=== PATIENT | male | born 1940 | race Caucasian/White ===

== ENCOUNTER 2019-02-03 19:18 | Emergency (ER) | payer MEDICARE, BC ==
[~2019-02-03] VITALS: Ht 167.6 cm; Wt 63.5 kg
[~2019-02-03 19:18] MED LIST: ALPR.5 PO; CENTRUM SILVER1 EAC1; FAMO20 PO; HYDACE5 PO; HYDACE5325 PO; LORA.5 PO; MECL25 PO; OMEP20ER PO; SUCR1 PO
[2019-02-03] MEDS ORDERED: ALPR.5 (19:30)
[2019-02-03] MEDS ORDERED: AMLO5 PO (19:31)
[2019-02-03 19:49] LABS: BASOPHILS ABSOLUTE AUTO 0.03 K/mm3 (0.00-0.23); BASOPHILS PERCENT AUTO 1 % (0-2); EOSINOPHILS ABSOLUTE AUTO 0.24 K/mm3 (0.00-0.68); EOSINOPHILS PERCENT AUTO 4 % (0-6); Hemoglobin 13.5 g/dL (13.5-17.5); IMMATURE GRAN ABSOLUTE AUTO 0.01 K/mm3 (0.00-0.10); IMMATURE GRAN PERCENT AUTO 0 % (0-1); LYMPHOCYTES ABSOLUTE AUTO 1.77 K/mm3 (0.84-5.20); LYMPHOCYTES PERCENT AUTO 28 % (21-46); MONOCYTES ABSOLUTE AUTO 0.89 K/mm3 (0.16-1.47); MONOCYTES PERCENT AUTO 14 % (4-13); Mean Corpuscular HGB 28.5 pg (26.0-34.0); Mean Corpuscular HGB Conc 32.1 g/dL (31.5-36.5); Mean Corpuscular Volume 89 fL (80-100); Mean Platelet Volume 10.1 fL (9.1-12.4); NEUTROPHILS PERCENT AUTO 54 % (41-73); Platelet Count 214 K/mm3 (150-400); RDW Coefficient Variation 13.3 % (11.7-14.2); RDW Standard Deviation 43.7 fL (35.1-46.3); Red Blood Cell Count 4.73 M/mm3 (4.30-5.90); White Blood Cell Count 6.44 K/mm3 (4.00-11.30)
[2019-02-03 20:19] LABS: Alanine Aminotransfer (ALT/SGP 24 U/L (12-78); Albumin, Blood 3.6 g/dL (3.4-5.0); Albumin/Globulin Ratio 1.1 (0.8-1.8); Alk Phos 80 U/L (50-136); Anion Gap 5 mmol/L (6-16); Aspartate Aminotrans (AST/SGOT 20 U/L (12-37); Bilirubin, Total 0.6 mg/dL (0.1-1.0); Blood Urea Nitrogen 25 mg/dL (8-24); CO2, Blood 29 mmol/L (21-32); Chloride, Blood 107 mmol/L (98-108); Creatinine, Blood 1.25 mg/dL (0.60-1.20); Globulin, Blood 3.2 g/dL (2.2-4.0); Glomerular Filtration Rate 59 (60-); Glucose, Blood 87 mg/dL (70-99); Potassium, Blood 4.4 mmol/L (3.5-5.5); Sodium, Blood 141 mmol/L (136-145); Total Protein, Blood 6.8 g/dL (6.4-8.2); Troponin I <0.015 ng/mL (0.000-0.040)
== END 2019-02-03 21:29 | disposition home or self-care (01) ==
LOC: ER 19:18
PROVIDERS: Emergency Medicine
DX: I10 Essential (primary) hypertension (principal); Z88.5 Allergy status to narcotic agent; Z88.6 Allergy status to analgesic agent; Z79.899 Other long term (current) drug therapy; F41.9 Anxiety disorder, unspecified; K21.9 Gastro-esophageal reflux disease without esophagitis
CPT/HCPCS: 36415; 71045; 80053; 84484; 85025; 93005; 93010; 99285-25

== ENCOUNTER → 2020-08-21 | Outpatient (CLI) | payer MEDICARE, BC ==
[~2020-08-21] MED LIST changes: +ALPR.5; +AMLO5 PO
[2020-08-21 15:14] LABS: BASOPHILS ABSOLUTE AUTO 0.04 K/mm3 (0.00-0.23); BASOPHILS PERCENT AUTO 1 % (0-2); EOSINOPHILS ABSOLUTE AUTO 0.09 K/mm3 (0.00-0.68); EOSINOPHILS PERCENT AUTO 1 % (0-6); Hematocrit 42.9 % (37.0-53.0); Hemoglobin 14.1 g/dL (13.5-17.5); IMMATURE GRAN ABSOLUTE AUTO 0.01 K/mm3 (0.00-0.10); IMMATURE GRAN PERCENT AUTO 0 % (0-1); LYMPHOCYTES ABSOLUTE AUTO 1.95 K/mm3 (0.84-5.20); LYMPHOCYTES PERCENT AUTO 28 % (21-46); MONOCYTES ABSOLUTE AUTO 0.69 K/mm3 (0.16-1.47); MONOCYTES PERCENT AUTO 10 % (4-13); Mean Corpuscular HGB 28.7 pg (26.0-34.0); Mean Corpuscular HGB Conc 32.9 g/dL (31.5-36.5); Mean Corpuscular Volume 87 fL (80-100); Mean Platelet Volume 9.6 fL (9.1-12.4); NEUTROPHILS ABSOLUTE AUTO 4.31 K/mm3 (1.96-9.15); NEUTROPHILS PERCENT AUTO 61 % (41-73); Platelet Count 227 K/mm3 (150-400); RDW Coefficient Variation 13.5 % (11.7-14.2); RDW Standard Deviation 43.1 fL (35.1-46.3); Red Blood Cell Count 4.92 M/mm3 (4.30-5.90); White Blood Cell Count 7.09 K/mm3 (4.00-11.30)
[2020-08-21 15:33] LABS: Alanine Aminotransfer (ALT/SGP 25 U/L (12-78); Albumin/Globulin Ratio 1.1 (0.8-1.8); Alk Phos 79 U/L (40-126); Anion Gap 7 mmol/L (6-16); Aspartate Aminotrans (AST/SGOT 21 U/L (12-37); Bilirubin, Total 0.6 mg/dL (0.1-1.0); Blood Urea Nitrogen 29 mg/dL (8-24); CO2, Blood 29 mmol/L (21-32); Calcium, Blood 9.6 mg/dL (8.5-10.1); Chloride, Blood 103 mmol/L (98-108); Creatinine, Blood 1.38 mg/dL (0.60-1.20); Globulin, Blood 3.5 g/dL (2.2-4.0); Glomerular Filtration Rate 50 (60-); Glucose, Blood 88 mg/dL (70-99); Potassium, Blood 4.7 mmol/L (3.5-5.5); Sodium, Blood 139 mmol/L (136-145); Thyroid Stimulating Hormone 0.873 uIU/mL (0.360-4.800); Total Protein, Blood 7.5 g/dL (6.4-8.2); Troponin I <0.017 ng/mL (0.000-0.040)
== END | disposition home or self-care (01) ==
LOC: LAB EV 15:10 → LAB SHORT 15:10
PROVIDERS: Physician Assistant
DX: R55 Syncope and collapse (principal); R53.83 Other fatigue
CPT/HCPCS: 80053; 84443; 84484; 85025

== ENCOUNTER 2021-01-18 08:48 | Day surgery (SDC) | payer MEDICARE, BC ==
--- NOTE | 2021-01-18 09:58 | NUR ---
Ambulatory in Day Surgery History, Chart, Medications and Allergies reviewed before start of procedure. Lungs clear T/O to Auscultation. Pre-Op teaching done. Pt verbalizes understanding.
--- NOTE | 2021-01-18 10:46 | NUR ---
Patient up to Ambulate independently. Gait steady. Discharge instructions reviewed with patient. Patient verbalizes understanding. Copy given to patient to take home.
--- NOTE | 2021-01-18 10:50 | NUR ---
PT AMBULATED WITH RN ESCORT TO VEHICLE.
== END 2021-01-18 22:49 | disposition home or self-care (01) ==
LOC: MHTC 08:48 → ORSCMMR 08:48 → ORD 09:30 → ORSCMMR 09:30 → CT 10:00 → ORSCMMR 22:49
DX: I25.10 Atherosclerotic heart disease of native coronary artery without angina pectoris (principal); I49.3 Ventricular premature depolarization; E78.00 Pure hypercholesterolemia, unspecified; I12.9 Hypertensive chronic kidney disease with stage 1 through stage 4 chronic kidney disease, or unspecified chronic kidney disease; N18.9 Chronic kidney disease, unspecified; Z88.8 Allergy status to other drugs, medicaments and biological substances
CPT/HCPCS: 75574; Q9967

== ENCOUNTER 2022-12-20 12:28 | Day surgery (SDC) | payer MEDICARE ==
[~2022-12-20] VITALS: Ht 167.6 cm; Wt 60.2 kg
--- NOTE | 2022-12-20 15:18 | NUR ---
12/20/22 1518 Ana Rosa Tate PT STATED LOWER ABDOMEN WAS "HAVING A LITTLE PAIN" 11/01. RN ASSISTED PT TO REPOSITION AND PT STATED THAT THE "PAIN WAS FEELING MUCH BETTER." PT TOLERATE PO FLUIDS WELL AND DENIED NAUSEA. PT VOICED SATISFACTION WITH THE CARE TODAY AT [facility].
== END 2022-12-20 15:13 | disposition home or self-care (01) ==
LOC: ORSCSDS 12:28
PROVIDERS: Internal Medicine Gastroenterology
PROC: 0DBN8ZX Excision of Sigmoid Colon, Via Natural or Artificial Opening Endoscopic, Diagnostic (ICD-10-PCS; principal; 2022-12-20 14:00)
PROC: 0DBL8ZX Excision of Transverse Colon, Via Natural or Artificial Opening Endoscopic, Diagnostic (ICD-10-PCS; principal; 2022-12-20 14:00)
PROC: 0DBK8ZX Excision of Ascending Colon, Via Natural or Artificial Opening Endoscopic, Diagnostic (ICD-10-PCS; principal; 2022-12-20 14:00)
PROC: 0DB58ZX Excision of Esophagus, Via Natural or Artificial Opening Endoscopic, Diagnostic (ICD-10-PCS; principal; 2022-12-20 14:00)
PROC: 0D757ZZ Dilation of Esophagus, Via Natural or Artificial Opening (ICD-10-PCS; principal; 2022-12-20 14:00)
PROC: 0DB78ZX Excision of Stomach, Pylorus, Via Natural or Artificial Opening Endoscopic, Diagnostic (ICD-10-PCS; principal; 2022-12-20 14:00)
DX: Z12.11 Encounter for screening for malignant neoplasm of colon (principal); Z86.010 Personal history of colon polyps; K21.9 Gastro-esophageal reflux disease without esophagitis; R13.10 Dysphagia, unspecified; Z87.11 Personal history of peptic ulcer disease; D12.3 Benign neoplasm of transverse colon; D12.2 Benign neoplasm of ascending colon; D12.5 Benign neoplasm of sigmoid colon; Z80.0 Family history of malignant neoplasm of digestive organs; K57.30 Diverticulosis of large intestine without perforation or abscess without bleeding; K64.8 Other hemorrhoids; I10 Essential (primary) hypertension; I25.10 Atherosclerotic heart disease of native coronary artery without angina pectoris; G47.33 Obstructive sleep apnea (adult) (pediatric); E78.00 Pure hypercholesterolemia, unspecified; Z79.899 Other long term (current) drug therapy
CPT/HCPCS: 88305; 88342; J2704; J7120

== ENCOUNTER 2024-06-16 08:23 | Observation (INO) | payer MEDICARE ==
[~2024-06-16] VITALS: Ht 167.6 cm; Wt 59.7 kg
[~2024-06-16 08:23] MED LIST changes: +AMLODIPINE BESY10 MG PO; +ASPI81CH PO; +CYCL10 PO; +XANAX0.25 MG PO
[2024-06-16 09:23] LABS: BASOPHILS ABSOLUTE AUTO 0.03 K/mm3 (0.00-0.23); BASOPHILS PERCENT AUTO 1 % (0-2); EOSINOPHILS ABSOLUTE AUTO 0.13 K/mm3 (0.00-0.68); EOSINOPHILS PERCENT AUTO 2 % (0-6); Hematocrit 42.5 % (37.0-53.0); Hemoglobin 13.9 g/dL (13.5-17.5); IMMATURE GRAN PERCENT AUTO 0 % (0-1); LYMPHOCYTES PERCENT AUTO 31 % (21-46); MONOCYTES ABSOLUTE AUTO 0.66 K/mm3 (0.16-1.47); MONOCYTES PERCENT AUTO 12 % (4-13); Mean Corpuscular HGB 28.7 pg (26.0-34.0); Mean Corpuscular HGB Conc 32.7 g/dL (31.5-36.5); Mean Corpuscular Volume 88 fL (80-100); Mean Platelet Volume 10.1 fL (9.1-12.4); NEUTROPHILS ABSOLUTE AUTO 3.01 K/mm3 (1.96-9.15); NEUTROPHILS PERCENT AUTO 55 % (41-73); Platelet Count 296 K/mm3 (150-400); RDW Coefficient Variation 13.4 % (11.7-14.2); RDW Standard Deviation 43.2 fL (35.1-46.3); Red Blood Cell Count 4.85 M/mm3 (4.30-5.90); White Blood Cell Count 5.53 K/mm3 (4.00-11.30)
[2024-06-16 09:30] LABS: Albumin, Blood 3.7 g/dL (3.4-5.0); Albumin/Globulin Ratio 1.1 (0.8-1.8); Bilirubin, Total 0.6 mg/dL (0.1-1.0); Bun/Creatinine Ratio 17.9 (12.0-20.0); Calcium, Blood 9.6 mg/dL (8.5-10.1); Creatinine, Blood 1.4 mg/dL (0.60-1.20); Globulin, Blood 3.5 g/dL (2.2-4.0); Potassium, Blood 4.3 mmol/L (3.5-5.5); Total Protein, Blood 7.2 g/dL (6.4-8.2)
[2024-06-16] MEDS ORDERED: Metoclopramide HCl 5MG / ML 2ML Vial IV ONE (11:50)
[2024-06-16] MEDS ORDERED: DiphenhydrAMINE HCl 50 MG/ML 1ML Vial IV ONE (11:50)
[2024-06-16] MEDS ORDERED: NS 1,000 ML IV SCH (11:50)
[2024-06-16] MEDS ORDERED: Aspirin 325 MG Tab PO ONE (11:50)
[2024-06-16] MEDS ORDERED: Aspirin 81 MG Chew PO ONE (12:20)
[2024-06-16] MEDS ORDERED: FLU VACC TS2024-25(6MOS UP)/PF 45 MCG/0.5 ML SYRINGE IM ONE (13:05)
[2024-06-16 15:31] VITALS: BP 182/87
--- NOTE | 2024-06-16 16:58 | NUR ---
ADMIT NOTE- PT ADMITTED THROUGH THE ED, HE WAS ASSISTED 1PA TO THE BATHROOM, HE IS VERY MODEST, 2 RN SKIN CHECK WAS COMPLETED WITH JEANMARIE MEDEIROS WHO IS NOW ASSUMING CARE OF THE PT. PT STATES HE HAS HAD THREE EPISODES OF CHEST PIAN TODAY, IT GETS WORSE WITH ACTIVITY, PER PT STATEMENT. PT PLACED ON TELE, NO CURRENT S&S OF DISTRESS NOTED.
--- NOTE | 2024-06-16 17:20 | NUR ---
ASSUMED CARE OF PT. PT CURRENTLY IN MRI. PT NOTED TO BECOME UNBALANCED AND REPORTS DIZZINESS WITH MOVEMENT. STATES IT NORMALIZES WHEN STILL. 1 PERSON ASSIST FROM BED TO GURNEY, DENIES CHESTPAIN, DENIES ABD PAIN. ABLE TO MAKE NEEDS KNOWN
[2024-06-16] MEDS ORDERED: D5W-1/2NS 1,000 ML IV SCH (18:15)
[2024-06-16 19:25] VITALS: BP 153/86
--- NOTE | 2024-06-16 20:56 | NUR ---
HOSPITALIST CONTACTED. PATIENT REPORTS TAKING ZANAX AT HOME Q12H FOR ANXIETY/SLEEP. PATIENT IS HAVING ANXIETY AND A BOUT OF INSOMNIA. DOCTOR ORDERED A ONE TIME DOSE OF ATIVAN IV-SEE ORDERS.
[2024-06-16] MEDS ORDERED: LORazepam 2 MG/ML 1ML Injection IV ONE (21:10)
[2024-06-17 04:29] VITALS: BP 149/83
[2024-06-17 05:57] LABS: BASOPHILS ABSOLUTE AUTO 0.03 K/mm3 (0.00-0.23); BASOPHILS PERCENT AUTO 1 % (0-2); EOSINOPHILS ABSOLUTE AUTO 0.14 K/mm3 (0.00-0.68); EOSINOPHILS PERCENT AUTO 2 % (0-6); Hematocrit 43.9 % (37.0-53.0); Hemoglobin 14.5 g/dL (13.5-17.5); IMMATURE GRAN ABSOLUTE AUTO 0.02 K/mm3 (0.00-0.10); IMMATURE GRAN PERCENT AUTO 0 % (0-1); LYMPHOCYTES ABSOLUTE AUTO 1.96 K/mm3 (0.84-5.20); LYMPHOCYTES PERCENT AUTO 32 % (21-46); MONOCYTES ABSOLUTE AUTO 0.75 K/mm3 (0.16-1.47); MONOCYTES PERCENT AUTO 12 % (4-13); Mean Corpuscular HGB 28.7 pg (26.0-34.0); Mean Corpuscular Volume 87 fL (80-100); Mean Platelet Volume 9.9 fL (9.1-12.4); NEUTROPHILS ABSOLUTE AUTO 3.29 K/mm3 (1.96-9.15); NEUTROPHILS PERCENT AUTO 53 % (41-73); Platelet Count 292 K/mm3 (150-400); RDW Coefficient Variation 13.6 % (11.7-14.2); Red Blood Cell Count 5.05 M/mm3 (4.30-5.90); White Blood Cell Count 6.19 K/mm3 (4.00-11.30)
[2024-06-17] MEDS ORDERED: Pantoprazole Sodium 40 MG Tab PO SCH (06:00)
--- NOTE | 2024-06-17 06:32 | NUR ---
SHIFT SUMMARY. PATIENT IS A&OX4. PATIENT IS PLEASANT. PATIENT CALLS APPROPRIATELY AND IS ABLE TO MAKE HIS NEEDS KNOWN. PATIENT ASKED FOR HIS XANAX THAT HE TAKES AT HOME-SEE PREVIOUS NOTE. PATIENT IS ANXIOUS TO EAT, AND REPORTS HAVING DIFFICULTY WITH SWALLOWING AT HOME NEEDING TO TURN HEAD TO THE RIGHT SIDE WHEN HE EATS OR DRINKS. PATIENT IS A 1 PERSON ASSIST W/GB TO THE BATHROOM. PATIENT HAS TELE ON WITH LEADS IN PLACE. BED IS LOCKED IN THE LOWEST POSTITION WITH CALL LIGHT IN REACH CARE IS ONGOING.
[2024-06-17 06:35] LABS: Bun/Creatinine Ratio 14.2 (12.0-20.0); Calcium, Blood 9.6 mg/dL (8.5-10.1); Creatinine, Blood 1.41 mg/dL (0.60-1.20); Potassium, Blood 4.4 mmol/L (3.5-5.5)
[2024-06-17 07:22] VITALS: BP 140/82
[2024-06-17] MEDS ORDERED: Enoxaparin 40 MG/0.4 ML SYR SC SCH (09:00)
[2024-06-17] MEDS ORDERED: Clopidogrel Bisulfate 75 MG Tab PO SCH (09:00)
[2024-06-17] MEDS ORDERED: Pantoprazole Sodium 40 MG Injection IV SCH (09:00)
[2024-06-17] MEDS ORDERED: Aspirin 81 MG Chew PO SCH (09:00)
[2024-06-17] MEDS ORDERED: Meclizine HCl 25 MG Tab PO SCH (10:00)
--- NOTE | 2024-06-17 14:09 | NUR ---
DR. LEIVA NOTIFIED, PT HEADACHE INTENSIFIED THROUGHOUT DAY, OT CONCERN FOR BALANCE, PT STATED THAT WORDS IN INDONES[place] THAT HE WOULD NORMALLY BE ABLE TO SAY ARE DIFFICULT TO EXPRESS NOW. SBP 140S. AWAITING ORDERS
[2024-06-17 15:31] VITALS: BP 161/87
[2024-06-17] MEDS ORDERED: HydrALAZINE HCl 20 MG / ML 1ML Vial IV PRN (16:35)
[2024-06-17 17:30] VITALS: BP 147/81
--- NOTE | 2024-06-17 18:04 | NUR ---
PT IS ALERT AND ORIENTED X4, CALLS APPROPRIATELY. DIFFICULTY BALANCING WITH STANDING AND RETURNING TO SITTING POSITION, ST/OT/PT WITH PT TODAY. PLAN FOR SNF PENDING APPROVAL. SBA WITH FWW TO BATHROOM. CURRENTLY SITTING EATING DINNER.
[2024-06-17 19:52] VITALS: BP 163/89
[2024-06-17] MEDS ORDERED: ALPRAZolam 0.25 MG Tab PO PRN (20:45)
[2024-06-17] MEDS ORDERED: Losartan Potassium 25 MG Tab PO SCH (21:00)
[2024-06-18] MEDS ORDERED: Acetaminophen 325 MG TABLET PO PRN (01:45)
[2024-06-18 04:07] VITALS: BP 142/80
--- NOTE | 2024-06-18 05:20 | NUR ---
SHIFT SUMMARY. PATIENT IS A&OX4. PATIENT CALLS APPROPRIATELY AND IS ABLE TO MAKE HIS NEEDS KNOWN. PATIENT UP TO BATHROOM WITH SBA AND FWW. PATIENT C/O HEADACHE TONIGHT-HOSPITALIST CONTACTED-ORDERED FOR PRN TYLENOL; SEE ORDERS. PATIENT A LITTLE ANXIOUS TONIGHT-PRN XANAX GIVEN WITH IMPROVEMENT TO ANXIETY. PATIENT IS PLEASANT AND COOPERATIVE WITH CARE. BED IS LOCKED IN THE LOWEST POSITION WITH CALL LIGHT IN REACH. CARE IS ONGOING.
[2024-06-18 05:29] LABS: BASOPHILS ABSOLUTE AUTO 0.04 K/mm3 (0.00-0.23); BASOPHILS PERCENT AUTO 1 % (0-2); EOSINOPHILS ABSOLUTE AUTO 0.17 K/mm3 (0.00-0.68); EOSINOPHILS PERCENT AUTO 3 % (0-6); Hematocrit 39.4 % (37.0-53.0); Hemoglobin 13.1 g/dL (13.5-17.5); IMMATURE GRAN ABSOLUTE AUTO 0.01 K/mm3 (0.00-0.10); IMMATURE GRAN PERCENT AUTO 0 % (0-1); LYMPHOCYTES ABSOLUTE AUTO 1.33 K/mm3 (0.84-5.20); LYMPHOCYTES PERCENT AUTO 22 % (21-46); MONOCYTES ABSOLUTE AUTO 0.82 K/mm3 (0.16-1.47); MONOCYTES PERCENT AUTO 14 % (4-13); Mean Corpuscular HGB 28.5 pg (26.0-34.0); Mean Corpuscular HGB Conc 33.2 g/dL (31.5-36.5); Mean Corpuscular Volume 86 fL (80-100); Mean Platelet Volume 9.6 fL (9.1-12.4); NEUTROPHILS ABSOLUTE AUTO 3.57 K/mm3 (1.96-9.15); NEUTROPHILS PERCENT AUTO 60 % (41-73); Platelet Count 260 K/mm3 (150-400); RDW Coefficient Variation 13.2 % (11.7-14.2); RDW Standard Deviation 41.1 fL (35.1-46.3); White Blood Cell Count 5.94 K/mm3 (4.00-11.30)
[2024-06-18 06:04] LABS: Bun/Creatinine Ratio 14.1 (12.0-20.0); Calcium, Blood 9.1 mg/dL (8.5-10.1); Creatinine, Blood 1.42 mg/dL (0.60-1.20); Potassium, Blood 4.3 mmol/L (3.5-5.5)
[2024-06-18 07:25] VITALS: BP 169/96
[2024-06-18 08:12] VITALS: BP 145/73
--- NOTE | 2024-06-18 08:53 | NUR ---
PT REPORTS SEVERE HEADACHE, UNRELIEVED WITH TYLENOL, BP MED GIVEN TO SEE IF IT WOULD HELP. PT REPORTS HEADACHE THAT IS MAKING HIM SEE STARS. DR. LEIVA NOTIFIED. EMAR UPDATED
[2024-06-18] MEDS ORDERED: TraMADol HCl 50 MG Tab PO PRN (08:55)
[2024-06-18] MEDS ORDERED: Docusate Sodium/Senna 1 Tab PO PRN (09:50)
[2024-06-18 16:24] VITALS: BP 159/85
--- NOTE | 2024-06-18 16:51 | NUR ---
PT FAMILY AT BEDSIDE. APPRECIATES PT CARE TEAM. NO ACUTE CHANGES. OT RECOMMENDS PT TREAT FOR [facility]- PETE MANEUVER. DR. LEIVA OK WITH ORDER. PT STATES SOME INTERMITTENT DIZZINESS BUT BETTER TODAY THAN YESTERDAY. PT BALANCE IS OFF WITH SIT TO STAND AND BACK. TREATED HEADACHE PER EMAR. PT REPORTS ANXIETY WITH ENTIRE SITUATION. CALLS APPROPRIATELY, ORIENTED X4. ABLE MAKE NEEDS KNOWN.
[2024-06-18 19:14] VITALS: BP 134/72
[2024-06-19 03:07] VITALS: BP 127/83
--- NOTE | 2024-06-19 04:33 | NUR ---
SHIFT SUMMARY: PT IS A PLEASANT 83 YO FULL CODE MALE. PT HAS HAD SOME ANXIETY BUT HAS MANAGED VERY WELL WITH ANXIETY MEDICATION (SEE EMAR). PT IS A&OX4 AND IS A ONE ASSIST WITH A FWW TO THE [facility]. PT CAN BE HARD TO UNDERSTAND AT TIME BECAUSE HE HAS A THICK [place] ACCENT. HE TAKES MEDS ONE AT A TIME WHOLE WITH APPLE SAUCE. PT IS ON A SOFT BITE SIZED DIET. PT IS STILL DIZZY AT TIMES AND HAS HEADACHES BUT HAS GOTTEN SOME REST TONIGHT. PT CALLS APPROPRIATELY AND HAS CALL LIGHT IN REACH.
[2024-06-19 05:55] LABS: BASOPHILS ABSOLUTE AUTO 0.03 K/mm3 (0.00-0.23); BASOPHILS PERCENT AUTO 1 % (0-2); EOSINOPHILS PERCENT AUTO 4 % (0-6); Hematocrit 40.6 % (37.0-53.0); Hemoglobin 13.2 g/dL (13.5-17.5); IMMATURE GRAN ABSOLUTE AUTO 0.02 K/mm3 (0.00-0.10); IMMATURE GRAN PERCENT AUTO 0 % (0-1); LYMPHOCYTES ABSOLUTE AUTO 1.16 K/mm3 (0.84-5.20); LYMPHOCYTES PERCENT AUTO 20 % (21-46); MONOCYTES ABSOLUTE AUTO 0.96 K/mm3 (0.16-1.47); MONOCYTES PERCENT AUTO 17 % (4-13); Mean Corpuscular HGB Conc 32.5 g/dL (31.5-36.5); Mean Corpuscular Volume 86 fL (80-100); Mean Platelet Volume 9.4 fL (9.1-12.4); NEUTROPHILS ABSOLUTE AUTO 3.42 K/mm3 (1.96-9.15); NEUTROPHILS PERCENT AUTO 59 % (41-73); Platelet Count 264 K/mm3 (150-400); RDW Coefficient Variation 13.6 % (11.7-14.2); Red Blood Cell Count 4.72 M/mm3 (4.30-5.90); White Blood Cell Count 5.79 K/mm3 (4.00-11.30)
[2024-06-19 06:30] LABS: Bun/Creatinine Ratio 15.2 (12.0-20.0); Calcium, Blood 9.6 mg/dL (8.5-10.1); Creatinine, Blood 1.58 mg/dL (0.60-1.20); Potassium, Blood 4.6 mmol/L (3.5-5.5)
[2024-06-19 07:22] VITALS: BP 134/89
[2024-06-19] MEDS ORDERED: TraMADol HCl 50 MG Tab PO PRN (07:40)
[2024-06-19] MEDS ORDERED: Enoxaparin 30 MG/0.3 ML SYR SC SCH (09:00)
[2024-06-19 15:57] VITALS: BP 138/84
--- NOTE | 2024-06-19 18:36 | NUR ---
SHIFT SUMMARY PATIENT ABLE TO AMBULATE TO BATHROOM WITH SBA AND WALKER, A FEW EPISODES OF REPORTED VERTIGO. ANTIVERT TAKEN PER NOV. SON ATA ENCOURAGING PT FOR DISCHARGE TO [facility], PT APPREHENSIVE ABOUT POTENTIAL DISCHARGE. TELEMETRY SINUS RHYTHM, NO CONCERNS. ABLE TO MAKE NEEDS KNOWN. CALL LIGHT IN REACH, CARES ONGOING.
[2024-06-19 19:14] VITALS: BP 132/75
--- NOTE | 2024-06-20 02:29 | NUR ---
SHIFT SUMMARY PT IS A&O X4, ABLE TO MAKE HIS NEEDS KNOWN, PLEASANT. PT AMBULATES INDEPENDENTLY W/I THE HOSPITAL ROOM. PT TAKES PO MEDS ONE AT A TIME, WITH APPLE SAUCE. HS XANAX REQUESTED PER PT FOR ANXIETY. PT DENIES ANY PAIN DURING THIS SHIFT. TELE: SR@65. PT DENIES N/V, AND REPORTS OVERALL FEELING MUCH BETTER. NO ACUTE EVENTS DURING THIS SHIFT. BED AT THE LOWEST POSITION, CALL LIGHT WITHIN REACH.
[2024-06-20 04:43] VITALS: BP 123/81
[2024-06-20 06:08] LABS: BASOPHILS ABSOLUTE AUTO 0.03 K/mm3 (0.00-0.23); BASOPHILS PERCENT AUTO 1 % (0-2); EOSINOPHILS ABSOLUTE AUTO 0.23 K/mm3 (0.00-0.68); EOSINOPHILS PERCENT AUTO 4 % (0-6); Hemoglobin 13.3 g/dL (13.5-17.5); IMMATURE GRAN ABSOLUTE AUTO 0.03 K/mm3 (0.00-0.10); IMMATURE GRAN PERCENT AUTO 1 % (0-1); LYMPHOCYTES ABSOLUTE AUTO 1.32 K/mm3 (0.84-5.20); LYMPHOCYTES PERCENT AUTO 25 % (21-46); MONOCYTES ABSOLUTE AUTO 0.86 K/mm3 (0.16-1.47); MONOCYTES PERCENT AUTO 16 % (4-13); Mean Corpuscular HGB 28.5 pg (26.0-34.0); Mean Corpuscular HGB Conc 33.3 g/dL (31.5-36.5); Mean Corpuscular Volume 86 fL (80-100); Mean Platelet Volume 9.7 fL (9.1-12.4); NEUTROPHILS ABSOLUTE AUTO 2.89 K/mm3 (1.96-9.15); NEUTROPHILS PERCENT AUTO 54 % (41-73); Platelet Count 264 K/mm3 (150-400); RDW Coefficient Variation 13.6 % (11.7-14.2); RDW Standard Deviation 42.9 fL (35.1-46.3); Red Blood Cell Count 4.67 M/mm3 (4.30-5.90); White Blood Cell Count 5.36 K/mm3 (4.00-11.30)
[2024-06-20 06:38] LABS: Bun/Creatinine Ratio 18.2 (12.0-20.0); Calcium, Blood 9.4 mg/dL (8.5-10.1); Creatinine, Blood 1.48 mg/dL (0.60-1.20); Potassium, Blood 4.5 mmol/L (3.5-5.5)
[2024-06-20 08:04] VITALS: BP 130/76
[2024-06-20] MEDS ORDERED: Enoxaparin 40 MG/0.4 ML SYR SC SCH (09:00)
[2024-06-20 15:08] VITALS: BP 129/80
--- NOTE | 2024-06-20 17:36 | NUR ---
SHIFT SUMMARY PATIENT AMBULATING TO BATHROOM THIS SHIFT, INTERMITTENT DIZZINESS PERSISTENT. COVID SWAB SENT TO LAB THIS SHIFT. REPORTS NO BOWEL MOVEMENT THIS SHIFT, DECLINED INTERVENTIONS, STATED HE IS PASSING GAS. NO NEW STROKE LIKE SYMPTOMS. CALL LIGHT IN REACH, CARES ONGOING.
[2024-06-20 17:53] LABS: SARS-Cov-2 (COVID-19) PCR, MMC NEGATIVE (NEGATIVE)
[2024-06-20 19:11] VITALS: BP 125/81
[2024-06-21 04:09] VITALS: BP 133/88
--- NOTE | 2024-06-21 04:29 | NUR ---
SHIFT SUMMARY PT IS A&O X4, ABLE TO MAKE HIS NEEDS KNOWN AND COOPERATIVE WITH CARE. AT HS, PT C/O H/A 01/29, PT EDUCATION PROVIDED ABOUT IMPORTANCE OF PAIN MANAGMENT. PT AGREED TO TRY TYLENOL PRN, WITH GOOD EFFECTIVNESS. PT AMBULATES INDEPENDENTLY W/I THE HOSPITAL ROOM. [facility] PER PT REPORT. SOME ANXIETY NOTED, PRN XANAX PO ADMINISTERED PER PT REQUEST AT HS. PT DENIES DIZZINESS AT HS. TELE: SR@. NO ACUTE EVENTS/DISTRESS DURING THIS SHIFT. BED AT THE LOWEST POSITION, CALL LIGHT WITHIN REACH.
[2024-06-21 07:45] VITALS: BP 145/86
[2024-06-21] MEDS ORDERED: ASPI81CH PO (11:36)
[2024-06-21] MEDS ORDERED: CLOP75 PO (11:42)
[2024-06-21] MEDS ORDERED: MECL25 PO (11:42)
[2024-06-21] MEDS ORDERED: TRAM50 PO (11:44)
--- NOTE | 2024-06-21 15:56 | NUR ---
DISCHARGE/SHIFT SUMMARY: A&Ox4. PLEASANT AND COOPERATIVE WITH CARE. CALLS APPROPRIATELY AND IS ABLE TO ADVOCATE NEEDS EFFECTIVELY. CONTINENT AND CALLS FOR ASSISTANCE. 1PA c FWW. MEDS WHOLE WITH APPLESAUCE. TELE NSR. NO C/O PAIN OR DISCOMFORT. IV REMOVED BY SN CHANTAL. PATIENT ESCORTED FROM FLOOR BY WITH ALL BELONGINGS AND DISCHARGE PACKET @ 0329. TRANSPORTATION PROVIDED BY [facility].
== END 2024-06-21 16:09 ==
LOC: ER 08:23 → MEDS 08:24
PROVIDERS: Physician Assistant; ADMIT Internal Medicine
DX: R51.9 Headache, unspecified (principal); R42 Dizziness and giddiness; R13.19 Other dysphagia; I12.9 Hypertensive chronic kidney disease with stage 1 through stage 4 chronic kidney disease, or unspecified chronic kidney disease; N18.32 Chronic kidney disease, stage 3b; E78.5 Hyperlipidemia, unspecified; I25.10 Atherosclerotic heart disease of native coronary artery without angina pectoris; K58.9 Irritable bowel syndrome, unspecified; K21.9 Gastro-esophageal reflux disease without esophagitis; Z87.891 Personal history of nicotine dependence; Z79.899 Other long term (current) drug therapy; Z88.6 Allergy status to analgesic agent; Z88.5 Allergy status to narcotic agent; Z86.11 Personal history of tuberculosis
CPT/HCPCS: 36415; 70450; 70496; 70498; 70551; 80048; 80053; 83735; 85025; 92526; 92610; 93005; 93010; 96361; 96372; 96374-59; 96375; 96375-59; 96376; 97116; 97162; 97165; 97530; 97535; 99285-25; A9270; G0378; J0360; J1200; J1650; J2060; J2470; J2765; J7030; J7042; Q9967; U0002